=== PATIENT | female | born 1990 | race Caucasian/White ===

== ENCOUNTER 2017-11-25 09:45 | Emergency (ER) | payer BC ==
[2017-11-25 09:50] VITALS: TEMP 98.6
[2017-11-25 10:05] LABS: Glucose,Whole Blood 102 mg/dL (75-99)
[2017-11-25] MEDS ORDERED: tPA (Alteplase) PER PHARMACY 1 EACH MISC MISCELLANE PRN (10:10)
[2017-11-25] MEDS ORDERED: ALTEPLASE 66 MG in EMPTY BAG 1 BAG IV STA (10:13)
[2017-11-25] MEDS ORDERED: ALTEPLASE BOLUS IV STA (10:14)
[2017-11-25 10:15] LABS: Basophils % (A) 0 %; Eosinophils # (A) 0.1 k/uL (0-0.7); Eosinophils % (A) 2 %; HCT 42.1 % (34.0-46.0); HGB 14.3 gm/dL (11.4-16.0); Lymphocytes # (A) 1.7 k/uL (1.0-4.8); Lymphocytes % (A) 27 %; MCH 30.2 pg (25.0-35.0); MCV 88.8 fL (80.0-100.0); Mean Platelet Volume 7.8; Monocytes # (A) 0.4 k/uL (0-1.0); Monocytes % (A) 6 %; Neutrophils # (A) 3.8 k/uL (1.3-7.7); Neutrophils % (A) 62 %; Platelet Count 253 k/uL (150-450); RBC 4.74 m/uL (3.80-5.40); RDW 12.9 % (11.5-15.5)
[2017-11-25] MEDS ORDERED: LORazepam 2 MG/ML INJ IV STA (10:15)
[2017-11-25 10:24] LABS: ALT 29 U/L (9-52); AST 25 U/L (14-36); Acetaminophen <10.0 ug/mL; Albumin 4.4 g/dL (3.5-5.0); Alkaline Phosphatase 63 U/L (38-126); Anion Gap 15 mmol/L; Blood Urea Nitrogen 10 mg/dL (7-17); Calcium 9.5 mg/dL (8.4-10.2); Carbon Dioxide 19 mmol/L (22-30); Chloride 108 mmol/L (98-107); Glucose 103 mg/dL (74-99); Potassium 3.9 mmol/L (3.5-5.1); Salicylate <1.0 mg/dL; Sodium 142 mmol/L (137-145); Total Bilirubin 0.9 mg/dL (0.2-1.3); Total Protein 8.2 g/dL (6.3-8.2)
--- NOTE | 2017-11-25 10:26 | CT ---
EXAMINATION TYPE: CT brain wo con for TPA DATE OF EXAM: 11/25/2017 COMPARISON: NONE HISTORY: CODE STRoke CT DLP: 1121 mGycm Automated exposure control for dose reduction was used. FINDINGS: Artifact limits the exam for hemorrhage. Grossly the ventricular system is midline. No mass effect. Hyperostosis of the calvarium noted. Calvarium intact. Changes of chronic sinusitis noted. Additional ly there is a slightly increased area of density on image 19 within the left MCA. A hyperdense left M CA sign is not excluded. IMPRESSION: Markedly limited exam for hemorrhage due to artifact. No obvious midline shift or mass effect. Given the marked limitations exam if concern for hemorrhage or acute ischemia correlate with MRI or repeat CT as clinically warranted. Limitations exam discussed with the ER physician. No obvious intraparench ymal hemorrhage although subtle hemorrhage along the periphery of the brain on this limited. Addition ally there does appear to be slightly increased area of density in the distribution of the left MCA o n axial image 18 and 19. Hyperdense artery sign of acute thrombus within the left MCA is not excluded . It should be correlated clinically.
[2017-11-25 10:27] LABS: Partial Thromboplastin Time 22.9 sec (22.0-30.0); Prothrombin Time 9.6 sec (9.0-12.0)
[2017-11-25 10:40] LABS: HCG,Quantitative Serum <2.4 mIU/mL
[2017-11-25 10:43] LABS: Creatine Kinase 133 U/L (30-135)
--- NOTE | 2017-11-25 10:45 | ED ---
General Adult HPI - General Chief complaint: Altered Mental Status Stated complaint: Confused Time Seen by Provider: 11/25/17 09:51 Source: patient, RN notes reviewed, old records reviewed Mode of arrival: wheelchair Limitations: no limitations - History of Present Illness Initial comments: 27-year-old female presents with difficulty speaking. Symptoms began at 9:15 this morning. This was approximately 40 minutes prior to arrival. Patient has no significant past medical history. She is on control, no other daily medications. Patient is unable to participate effectively and history. She denies headache. She denies any pain complaints. Her brother is initially available for questioning. He states that this morning she came out of the shower and was "not right". Family history of hypertension diabetes. Patient has no history of hypertension or diabetes. No recent surgery, no recent trauma. Patient's brother did notice a right-sided facial droop, this was resolving on initial evaluation. - Related Data Allergies Allergy/AdvReac Type Severity Reaction Status Date / Time No Known Allergies Allergy Verified 11/25/17 09:50 Review of Systems ROS Statement: Those systems with pertinent positive or pertinent negative responses have been documented in the HPI. ROS Other: All systems not noted in ROS Statement are negative. Past Medical History Past Medical History: No Reported History History of Any Multi-Drug Resistant Organisms: None Reported Past Surgical History: Cholecystectomy Past Psychological History: No Psychological Hx Reported Smoking Status: Never smoker Past Alcohol Use History: None Reported Past Drug Use History: None Reported General Exam Limitations: no limitations General appearance: alert, in distress Head exam: Present: atraumatic, normocephalic Eye exam: Present: normal appearance, PERRL, EOMI ENT exam: Present: normal exam Neck exam: Present: normal inspection. Absent: tenderness, meningismus Respiratory exam: Present: normal lung sounds bilaterally. Absent: respiratory distress, wheezes Cardiovascular Exam: Present: regular rate, normal rhythm GI/Abdominal exam: Present: soft. Absent: distended, tenderness Extremities exam: Present: normal inspection, normal capillary refill. Absent: pedal edema Neurological exam: Present: alert, motor sensory deficit (Patient has severe expressive aphasia, she has no limb weakness, strength is 5 out of 5 in all 4 limbs. Mild right-sided facial droop NIH is 7.). Absent: oriented X3, CN II- XII intact Psychiatric exam: Present: anxious Skin exam: Present: warm, dry, intact. Absent: cyanosis, diaphoretic Course Vital Signs 11/25/17 09:48 Temperature 98.6 F Pulse Rate 91 Respiratory 18 Rate Blood Pressure 165/126 O2 Sat by Pulse 98 Oximetry Medical Decision Making - Medical Decision Making 27-year-old female presenting with concern for stroke. Symptom onset is 9015. Patient is immediately taken to CAT scan for both CT and CT angiography. NIH is initially 7. CT is reviewed by Dr. aMe, negative for intracranial hemorrhage. This is discussed and it is felt that the patient will be a TPA candidate. Risks are discussed with the patient's mother and brother. All parties involved agree with TPA at this time. Patient's blood pressure is somewhat elevated consistent with ischemic stroke, ranging between 150- 170 systolic. There is some artifact on initial CT, CT is repeated however this was after IV contrast was instilled, this somewhat limits the study. This was discussed with the radiologist. At this time it is felt that there is no intracranial hemorrhage. Therefore given the probable MCA sign and symptoms, TPA will be initiated. Patient will be transferred to [facility] in [place] for thrombectomy status post TPA All laboratory studies are pending. - Lab Data Result diagrams: 11/25/17 10:07 11/25/17 10:07 Lab Results 11/25/17 11/25/17 11/25/17 Range/Units 09:56 10:07 10:07 WBC 6.0 (3.8-10.6) k/uL RBC 4.74 (3.80-5.40) m/uL Hgb 14.3 (11.4-16.0) gm/dL Hct 42.1 (34.0-46.0) % MCV 88.8 (80.0-100.0) fL MCH 30.2 (25.0-35.0) pg MCHC 34.0 (31.0-37.0) g/dL RDW 12.9 (11.5-15.5) % Plt Count 253 (150-450) k/uL Neutrophils % 62 % Lymphocytes % 27 % Monocytes % 6 % Eosinophils % 2 % Basophils % 0 % Neutrophils # 3.8 (1.3-7.7) k/uL Lymphocytes # 1.7 (1.0-4.8) k/uL Monocytes # 0.4 (0-1.0) k/uL Eosinophils # 0.1 (0-0.7) k/uL Basophils # 0.0 (0-0.2) k/uL PT (9.0-12.0) sec INR (<1.2) APTT (22.0-30.0) sec Sodium (137-145) mmol/L Potassium (3.5-5.1) mmol/L Chloride (98-107) mmol/L Carbon Dioxide (22-30) mmol/L Anion Gap mmol/L BUN (7-17) mg/dL Creatinine (0.52-1.04) mg/dL Est GFR (CKD-EPI)AfAm (>60 ml/min/1.73 sqM) Est GFR (CKD-EPI)NonAf (>60 ml/min/1.73 sqM) Glucose (74-99) mg/dL POC Glucose (mg/dL) 102 H (75-99) mg/dL POC Glu Cattle Sticker ID Josephine Harrell Calcium (8.4-10.2) mg/dL Total Bilirubin (0.2-1.3) mg/dL AST (14-36) U/L ALT (9-52) U/L Alkaline Phosphatase (38-126) U/L Total Creatine Kinase 133 (30-135) U/L CK-MB (CK-2) <0.2 (0.0-2.4) ng/mL CK-MB (CK-2) Rel Index Troponin I <0.012 (0.000-0.034) ng/mL Total Protein (6.3-8.2) g/dL Albumin (3.5-5.0) g/dL HCG, Quant mIU/mL Salicylates mg/dL Acetaminophen ug/mL 18 11/25/17 Range/Units 10:07 10:07 WBC (3.8-10.6) k/uL RBC (3.80-5.40) m/uL Hgb (11.4-16.0) gm/dL Hct (34.0-46.0) % MCV (80.0-100.0) fL MCH (25.0-35.0) pg MCHC (31.0-37.0) g/dL RDW (11.5-15.5) % Plt Count (150-450) k/uL Neutrophils % % Lymphocytes % % Monocytes % % Eosinophils % % Basophils % % Neutrophils # (1.3-7.7) k/uL Lymphocytes # (1.0-4.8) k/uL Monocytes # (0-1.0) k/uL Eosinophils # (0-0.7) k/uL Basophils # (0-0.2) k/uL PT 9.6 (9.0-12.0) sec INR 1.0 (<1.2) APTT 22.9 (22.0-30.0) sec Sodium 142 (137-145) mmol/L Potassium 3.9 (3.5-5.1) mmol/L Chloride 108 H (98-107) mmol/L Carbon Dioxide 19 L (22-30) mmol/L Anion Gap 15 mmol/L BUN 10 (7-17) mg/dL Creatinine 0.84 (0.52-1.04) mg/dL Est GFR (CKD-EPI)AfAm >90 (>60 ml/min/1.73 sqM) Est GFR (CKD-EPI)NonAf >90 (>60 ml/min/1.73 sqM) Glucose 103 H (74-99) mg/dL POC Glucose (mg/dL) (75-99) mg/dL POC Glu Cattle Sticker ID Calcium 9.5 (8.4-10.2) mg/dL Total Bilirubin 0.9 (0.2-1.3) mg/dL AST 25 (14-36) U/L ALT 29 (9-52) U/L Alkaline Phosphatase 63 (38-126) U/L Total Creatine Kinase (30-135) U/L CK-MB (CK-2) (0.0-2.4) ng/mL CK-MB (CK-2) Rel Index Troponin I (0.000-0.034) ng/mL Total Protein 8.2 (6.3-8.2) g/dL Albumin 4.4 (3.5-5.0) g/dL HCG, Quant <2.4 mIU/mL Salicylates <1.0 mg/dL Acetaminophen <10.0 ug/mL Critical Care Time Critical Care Time: Yes Total Critical Care Time: 35 Disposition Clinical Impression: Expressive aphasia, CVA (cerebral vascular accident) Disposition: OTHER INSTITUTION NOT DEFINED Condition: Serious Is patient prescribed a controlled substance at d/c from ED?: No Referrals: Nonstaff,Physician [Primary Care Provider] - 1-2 days Time of Disposition: 10:47 - Out of Hospital Transfer - Req. Specs Out of Hospital Transfer - Requested Specifics: Other Emergency Center ( Transferred to [facility] for neuro intervention.)
--- NOTE | 2017-11-25 10:47 | CT ---
EXAMINATION TYPE: CT brain wo con DATE OF EXAM: 11/25/2017 COMPARISON: NONE HISTORY: Neuro deficit Contrast: 100 cc Isovue-370 CT DLP: 493 mGycm. Automated Exposure Control for Dose Reduction was Utilized. TECHNIQUE: CT scan of the head is performed without contrast. FINDINGS: Contrast was administered which limits assessment for subarachnoid hemorrhage. Exam is comp ared to the exam performed 11/25/2017 noncontrast exam due to extensive artifact along the periphery o f the brain. No obvious intraparenchymal hemorrhage or subdural, epidural collection. No midline shif t. There is enhancement of the vasculature. Due to contrast administration assessment for subarachnoi d hemorrhage is limited. Changes of sinusitis noted. Case discussed with emergency room physician. IMPRESSION: 1. No obvious intraparenchymal hemorrhage or mass effect. Contrast was administered which limits the subarachnoid spaces. Visualized portions of the vasculature enhances normally. CTA is to follow up wi th particular attention to the left MCA as noted by noncontrast CT scan.
[2017-11-25 10:56] LABS: Creatine Kinase MB <0.2 ng/mL (0.0-2.4); Troponin I <0.012 ng/mL (0.000-0.034)
--- NOTE | 2017-11-25 10:57 | CT ---
EXAMINATION TYPE: CT angio head neck DATE OF EXAM: 11/25/2017 HISTORY: Confused COMPARISON: NONE CT DLP: 493 mGycm. Automated Exposure Control for Dose Reduction was Utilized. TECHNIQUE: CTA scan of the neck is performed without and with IV Contrast, patient injected with 100 ml mL of Isovue 370, axial images are obtained, coronal and sagittal reformatted images are reviewed . Three-D reconstructed images are created on an independent workstation and reviewed. FINDINGS: Carotid/Vascular Structures: There is apparent reduced enhancement of the distal left MCA artery. Tri furcation vessels are not well visualized. Thrombus within the arteries in the differential diagnosis . Visualized right MCA and anterior cerebral arteries enhance. Distal branches are well seen. The vertebrobasilar and carotid systems are patent. Assessment of the common carotid arteries and the carotid bifurcations demonstrates the arterial syst em is patent. Lung apices are clear. Other: Visualized soft tissues demonstrate no definite acute abnormalities. IMPRESSION: 1. There is incomplete enhancement and truncation of the distal left MCA in its trifurcation or bifur cation branches. The thrombus or occlusion occluding dissection within the artery within the differen tial diagnosis. Additionally correlate clinically. Case discussed with the ER physician.
[2017-11-25] MEDS ORDERED: ALTEPLASE IV STA (11:00)
[2017-11-25 11:44] VITALS: RESP 16
[2017-11-25 11:55] VITALS: BP 181/84; PULSE 90
== END 2017-11-25 11:10 | disposition other institution (70) ==
LOC: EC 09:45
DX: I63.9 Cerebral infarction, unspecified (principal); R29.707 NIHSS score 7; Z90.49 Acquired absence of other specified parts of digestive tract
CPT/HCPCS: 36415; 80053; 82550; 82553; 84484; 85025; 85610; 85730; 84702; 83520 ×2; 70496; 70450 ×2; 70498; 99291; 37195; 96374; J2997; J2060; Q9967